=== PATIENT | male | born 1995 | race Caucasian/White ===

== ENCOUNTER 2018-03-06 20:52 | Emergency (ER) | payer BC, SELFPAY ==
[2018-03-06 20:53] VITALS: BP 136/73; PULSE 66; RESP 18; TEMP 36.7; O2SAT 98; BMI 38.1
--- NOTE | 2018-03-06 20:56 | RAD_ITS ---
STUDY: X-RAY - LEFT KNEE REASON FOR EXAM: Male, 22 years old. Dislocated left knee. TECHNIQUE: 4 view(s) of the knee. COMPARISON: None. FINDINGS: Normal visualized distal femur. Normal visualized proximal tibia and fibula. Normal proximal tibiofibular articulation. There is no acute fracture, dislocation or destructive osseous pathology. Normal medial femorotibial compartment. Normal lateral femorotibial compartment. Normal patellofemoral articulation. There is a soft tissue prominence in the suprapatellar region suggesting a small volume joint effusion. The soft tissue structures are unremarkable. RAD/Knee 4 or More Views IMPRESSION: Suprapatellar joint effusion without evidence of fracture or dislocation. Electronically Signed: Miles Kat DO at 21:20 EST Tel [phone], Service support ,
--- NOTE | 2018-03-06 21:49 | ED.VIS.GEN ---
History of Present Illness Chief Complaint: Lower Extremity Injury Informant: Patient Onset: Today Context: Sudden Onset - turned the wrong way Timing: Intermittent Quality: sore Location: left knee Current Severity: Mild Maximum Severity: Severe Worsened by: walking/bending Relieved by: remaining still Narrative: Patient states he turned the wrong way and his left kneecap went off to the left and he was in severe pain. He pushed it back over, reducing it, which drastically improved his pain. He has had this happen before to the right one. He has not seen orthopedics before, but he has a knee immobilizer at home. He denies any other injury. Past Medical History - Allergies and Home Meds Allergies/Adverse Reactions: Allergies No Known Allergies Allergy (Verified 03/06/18 20:55) Primary Care Physician: Alsysa Crespo MD [Primary Care Provider] - Past Medical History: None Surgical History: no surgical history Smoking Status: Never smoker Drugs: None Review of Systems Musculoskeletal: Reports: Extremity Pain Neurological: Denies: Weakness, Numbness Physical Exam Vital Signs/Narrative: Vital Signs Temp Pulse Resp BP Pulse Ox 03/06/18 20:53 98.0 F 66 18 136/73 H 98 Inital Vital Signs reviewed: Yes General: Well nourished, Well developed, - - nad Head: Normocephalic, Atraumatic Extremities: Tenderness - left patella. Mild effusion. All ligaments stable and without pain on stressing. Negative anterior and posterior drawer signs. Extensor mechanism intact, but painful. Full range of motion. Skin: Normal color, No rash Neurological: Alert, Oriented x3, Cranial nerves II-XII grossly intact, Normal Strength, Normal Sensation Psychological: Normal affect Diagnostic/Tx/Re-eval Clinical Impression(s) from Imaging Studies Knee X-Ray 03/06/18 20:56 IMPRESSION: Suprapatellar joint effusion without evidence of fracture or dislocation. Electronically Signed: Miles Kat DO at 21:20 EST Tel [phone], Service support , - Medical Decision Making X-rays consistent with mild effusion and patella that is self reduced. Since he has a knee immobilizer at home, I will provide him with an Michael wrap to enhance stability here, but he is advised to use the knee immobilizer whenever he is not lying down at home until he sees orthopedics. He is given a referral, a dose of naproxen, and advised also to use anti-inflammatories and ice and elevation at home. He is comfortable with that plan. ED Disposition - Plan for ED Patient: Disposition: Home or Assisted Living Chief Complaint: Lower Extremity Injury Diagnosis: Dislocation of patella, left, closed Instructions: ED Dislocation Patella Referrals: Kong Aguilera MD [STAFF PHYSICIAN] - 1 Week Additional Instructions: Whenever you are not lying down at rest, use your knee immobilizer on your left knee. Use crutches whenever you are walking with your knee immobilizer on. When you are not walking, elevate and ice your left knee. Take ibuprofen daily as able.
[2018-03-06 22:02] VITALS: BP 136/73; PULSE 68; RESP 16; O2SAT 98
[2018-03-06] MEDS: Naproxen 500 MG Tablet PO (22:04)
== END 2018-03-06 22:09 | disposition home or self-care (01) ==
LOC: ED 22:08
PROVIDERS: Emergency Provider Emergency Medicine; Family Provider Family Medicine; PCP Family Medicine
DX: S83.005A Unspecified dislocation of left patella, initial encounter (principal); X50.1XXA Overexertion from prolonged static or awkward postures, initial encounter; Y93.01 Activity, walking, marching and hiking; Y92.89 Other specified places as the place of occurrence of the external cause; Y99.8 Other external cause status
CPT/HCPCS: 73564; 99282

== ENCOUNTER → 2022-09-29 | Outpatient (CLI) | payer OTHER, SELFPAY ==
[2022-09-29 13:18] LABS: Protein:Creat Ratio 424 mg/g CRE (0-200)
[2022-09-29 13:22] LABS: Anion Gap 7 (5-15); BUN 26 mg/dL (7-18); BUN/Creat Ratio 20.8 RATIO (10-20); Calcium,Total 8.7 mg/dL (8.5-10.1); Chloride 106 mmol/L (98-107); Creatinine, Serum 1.25 mg/dL (0.70-1.30); EST Glomerular Filtration Rate 74 mL/min (>60); Est Glom Filt Rate - Afr Amer 90 mL/min (>60); Glucose 92 mg/dL (74-106); Potassium 3.6 mmol/L (3.5-5.1); Sodium Level 137 mmol/L (136-145)
== END | disposition home or self-care (01) ==
PROVIDERS: PCP Family Medicine; Referring Provider Internal Medicine Nephrology; Visit Provider Internal Medicine Nephrology
DX: R80.9 Proteinuria, unspecified (principal); N18.1 Chronic kidney disease, stage 1
CPT/HCPCS: 36415; 80048; 82570; 84156

== ENCOUNTER → 2023-10-01 | Outpatient (CLI) | payer OTHER, SELFPAY ==
[2023-10-01 16:58] LABS: Albumin, Serum 3.9 g/dL (3.2-5.0); BUN 18 mg/dL (7-18); BUN/Creat Ratio 13.7 RATIO (10-20); Chloride 104 mmol/L (98-107); Creatinine, Serum 1.31 mg/dL (0.70-1.30); EST Glomerular Filtration Rate 70 mL/min (>60); Est Glom Filt Rate - Afr Amer 84 mL/min (>60); Glucose 100 mg/dL (74-106); Phosphorus 4.1 mg/dL (2.5-4.9); Potassium 3.4 mmol/L (3.5-5.1); Sodium Level 136 mmol/L (136-145)
[2023-10-05 19:43] LABS: Microalbumin,Random Urine 58.9 mg/L (NO RANGE EST.); Microalbumin:Creatinine Ratio 168.3 mg/g CRE (<30 mg/g CRE)
== END | disposition home or self-care (01) ==
PROVIDERS: PCP Family Medicine; Referring Provider Internal Medicine Nephrology; Visit Provider Internal Medicine Nephrology
DX: N18.1 Chronic kidney disease, stage 1 (principal)
CPT/HCPCS: 36415; 80069; 82043; 82570

== ENCOUNTER → 2024-10-21 | Outpatient (CLI) | payer OTHER, SELFPAY ==
[2024-10-21 17:21] LABS: Protein, Urine (Random) 55.3 mg/dL (0.0-12.0); Protein:Creat Ratio 322 mg/g CRE (0-200)
[2024-10-21 17:22] LABS: Anion Gap 13 (5-15); BUN 30 mg/dL (4-19); BUN/Creat Ratio 22.6 RATIO (10-20); Calcium,Total 9.1 mg/dL (7.6-11.0); Carbon Dioxide 21.1 mmol/L (21.0-32.0); Chloride 103 mmol/L (98-108); Creatinine, Serum 1.33 mg/dL (0.70-1.20); EST Glomerular Filtration Rate 75 (>60); Glucose 99 mg/dL (70-99); Potassium 3.8 mmol/L (3.3-5.1); Sodium Level 137 mmol/L (133-145)
== END | disposition home or self-care (01) ==
LOC: LAB 16:46
PROVIDERS: PCP Family Medicine; Referring Provider Internal Medicine Nephrology; Visit Provider Internal Medicine Nephrology
DX: N18.1 Chronic kidney disease, stage 1 (principal); R80.9 Proteinuria, unspecified
CPT/HCPCS: 36415; 80048; 82570; 84156